=== PATIENT | female | born 2005 | race African-American/Black ===

== ENCOUNTER 2025-03-25 20:51 | Emergency (ER) | payer MEDICAID ==
[~2025-03-25] VITALS: Ht 182.9 cm; Wt 91.0 kg
[2025-03-25 21:16] VITALS: O2SAT 100
[2025-03-25] MEDS: KETOROLAC 15MG/ML VIAL IM ONE (21:45)
[2025-03-25] MEDS: METOCLOPRAMIDE HCL 10MG TABLET PO ONE (22:16)
[2025-03-25] MEDS: DIPHENHYDRAMINE 25MG CAPSULE PO ONE (22:16)
[2025-03-25] MEDS ORDERED: NAPR-1176 MT (22:56)
[2025-03-25 23:08] VITALS: BP 118/66; PULSE 75; RESP 18; TEMP 36.8; O2SAT 100
== END 2025-03-25 23:09 | disposition home or self-care (01) ==
LOC: ER 20:51
DX: S09.8XXA Other specified injuries of head, initial encounter (principal); F10.129 Alcohol abuse with intoxication, unspecified; Z79.1 Long term (current) use of non-steroidal anti-inflammatories (NSAID); Y90.9 Presence of alcohol in blood, level not specified; X58.XXXA Exposure to other specified factors, initial encounter; Y93.67 Activity, basketball; Y92.89 Other specified places as the place of occurrence of the external cause; Y99.8 Other external cause status
CPT/HCPCS: 81025; 96372; 99283; Q0163; J8597; J1885; Z7610